=== PATIENT | male | born 1970 | race Caucasian/White ===

== ENCOUNTER 2023-02-22 10:10 | Emergency (ER) | payer OTHER | END 2023-02-22 11:03 | disposition home or self-care (01) | LOC: NAV ERS 10:10 | DX: S29.011A Strain of muscle and tendon of front wall of thorax, initial encounter (principal); F17.210 Nicotine dependence, cigarettes, uncomplicated; X50.0XXA Overexertion from strenuous movement or load, initial encounter ==